=== PATIENT | male | born 1975 | race Caucasian/White ===

== ENCOUNTER 2023-12-16 06:53 | Day surgery (SDC) | payer OTHER, SELFPAY ==
--- NOTE | 2023-12-16 | PATH_ITS ---
[facility] Accession Number: [id number] No. of containers..02 Tissue . 01 Material submitted: . PART A: colon - ASCENDING POLYP PART B: colon - SIGMOID POLYP . 01 Diagnosis: Part A: ASCENDING POLYP: Scant superficial glandular mucosa with no dysplasia identified. . Part B: SIGMOID POLYP: Colonic mucosa with benign lymphoid aggregate. No neoplasm identified. . Specimen Comments: Additional step sections were examined. [facility] 12/22/20231121 Local . 01 Electronically signed: . Luis Antonio Hernandez MD, Pathologist NPI- [id number] . 01 Gross description: . Part A: ASCENDING POLYP: Received in formalin is 1 fragment(s) of [place], soft tissue measuring 0.1 x 0.1 x 0.1 cm submitted entirely in 1 cassette(s) . Part B: SIGMOID POLYP: Received in formalin is 1 fragment(s) of [place], soft tissue measuring 0.4 x 0.2 x 0.2 cm submitted entirely in 1 cassette(s) /JESSICA 12/22/2023 112 Local . 01 Pathologist provided ICD-10: K63.5, K63.89 . 01 CPT . 939789, [id number] Specimen Comment: A courtesy copy of this report has been sent to [phone] Performed at: [facility] [address] [place] [address], [place], [place] [id number] MD Luis Antonio Hernandez MD Phone: [phone]
[2023-12-16 07:07] VITALS: BP 113/83; PULSE 74; RESP 16; TEMP 36.1; O2SAT 100
--- NOTE | 2023-12-16 07:52 | PM.HP.1 ---
History of Present Illness History of Present Illness Date Patient Seen: 12/16/23 Time Patient Seen: 07:52 Chief complaint: Colonoscopy Narrative: 48-year-old man here for screening colonoscopy. Family history of colon cancer in brother. No previous colonoscopy. No abdominal concerns today. [facility] Medical History Vision disorder Bulimia (~1999) Migraines (~1998) ADHD (~2002) MRSA (methicillin resistant Staphylococcus aureus) (~2005) Hypothyroidism Surgical History Anesthesia History of eye surgery History of removal of testicle (~1992) Status post appendectomy Family History Brother Age: 49 Obese Brother Age: 42 Obese Father Age: 73 Diabetes mellitus Hypertension Grandfather Diabetes mellitus Heart disease Grandmother Heart disease Grandfather No problems noted. Grandmother No problems noted. Mother History of thyroid nodule History of knee surgery History of neck surgery Social History Smoking Status: Former smoker alcohol intake: current Meds Home Medications and Allergies Home Medications Medication Instructions Recorded Confirmed Type CA PANTOTHENATE/FOLIC ACID/VIT 1 tab PO QDAY ##0 11/30/12 02/09/22 History (MULTIVITAMIN) methylphenidate HCl 27 mg 27 mg PO DAILY #30 tabs 05/18/18 02/09/22 Rx tablet,extended release 24 hr (Concerta) hydrochlorothiazide 12.5 mg tablet 12.5 mg PO DAILY #30 tabs 08/14/18 12/16/23 Rx peg 3350-sod sulf,cttlr-qfv-lfy 1,000 ml PO DIRECTED #2,000 mL 11/10/23 Rx 178.7-7.3-0.5-1.12-0.9 gram oral soln (Suflave) Allergies Allergy/AdvReac Type Severity Reaction Status Date / Time clindamycin [CLINDAMYCIN] Allergy Mild RASH Verified 12/16/23 07:06 Penicillins [PENICILLINS] Allergy Mild Verified 12/16/23 07:06 Sulfa (Sulfonamide Allergy Mild Verified 12/16/23 07:06 Antibiotics) [SULFA (SULFONAMIDE ANTIBIOTICS)] trimethoprim [TRIMETHOPRIM] Allergy Mild Verified 12/16/23 07:06 Exam Vital Signs (past 8 hours): - 12/16/23 07:07 Temperature 96.9 F L Pulse Rate 74 Respiratory Rate 16 Blood Pressure 113/83 Pulse Oximetry 100 Oxygen Delivery Method Room Air Oxygen Delivery Method Room Air Narrative Exam Narrative: General adult man alert oriented no acute distress Chest nonlabored respiration Extremities warm well perfused Assessment & Plan Assessment & Plan narrative: The patient requires colorectal screening and colonoscopy is recommended. Technical details were discussed. Risks, benefits, alternatives explained. Risks including but not limited to myocardial infarction, aspiration, bleeding, pain, missed lesion, incomplete examination, need for further radiographic studies, colonic perforation, and need for major abdominal surgery were discussed. All questions were answered to their satisfaction, and they are in agreement with this plan.
--- NOTE | 2023-12-16 07:53 | P.OP.COLON_ITS ---
Operative Date/Time/Diagnoses Date of procedure: 12/16/23 Time of procedure: 08:18 Pre-op diagnosis: Family history colon cancer Post-op diagnosis: other Procedure & Clinicians Study performed: Colonoscopy and polypectomy Same procedure as scheduled: Yes Indications: Colorectal screening Family history of colon cancer in first-degree relative Surgeon: Medhat Dorado Procedure Notes Procedure in detail: The history and physical was performed/updated and the patient is ASA class is 2. The procedure was discussed in detail with the patient. Potential risks complications including infection, bleeding, missed diagnosis, perforation, need for surgery, and were explained. Their questions were answered and informed consent was obtained. Patient was brought to the procedure room and placed standard monitoring equipment. The patient's vital signs were monitored continuously throughout the entire procedure. Prior to starting time-out was performed. The patient was placed in the left lateral recumbent position. Procedural sedation was administered by anesthesia. Examination began with a thorough inspection of the perianal area there was no evidence of fissures, fistulae, external hemorrhoids or cutaneous malignancy. The colonoscopy scope was then placed into the anal canal and was advanced to the cecum, which was identified by the ileocecal valve, the appendiceal orifice and the confluence of the taenia. The scope was then slowly withdrawn examining colon thoroughly in all directions, irrigating it of any residual stool. The scope was retroflexed within the rectum The patient tolerated the procedure well. They will be discharged once criteria are met. The prep was of good/excellent quality. The withdrawl time was 7 minutes. FINDINGS * Ascending colon 3 mm polyp removed with biopsy forceps * Sigmoid colon 3 mm polyp removed with biopsy forceps. Mild diverticulosis * Internal hemorrhoids Specimen(s): other (Ascending sigmoid colonic polyps) Impression: Colonic polyps x2 Post-procedure Plan for aftercare: Follow-up is dependent on pathology findings Disposition: same day surgery
[2023-12-16 08:15] VITALS: BP 95/65; PULSE 78; RESP 15; TEMP 36.1; O2SAT 97
[2023-12-16 08:20] VITALS: BP 104/61; PULSE 93; RESP 20; O2SAT 98
[2023-12-16 08:25] VITALS: BP 99/71; PULSE 77; RESP 16; TEMP 36.1; O2SAT 99
[2023-12-16 08:31] VITALS: BP 104/73; PULSE 65; RESP 14; TEMP 36.3; O2SAT 98
== END 2023-12-16 08:46 | disposition home or self-care (01) ==
PROVIDERS: PCP Internal Medicine; Referring Provider Surgery; Visit Provider Surgery
PROC: 0DJD8ZZ Inspection of Lower Intestinal Tract, Via Natural or Artificial Opening Endoscopic (ICD-10-PCS; CPT 45378; principal; 2023-12-16 07:45)
DX: Z12.11 Encounter for screening for malignant neoplasm of colon (principal); Z80.0 Family history of malignant neoplasm of digestive organs; K64.8 Other hemorrhoids; K57.30 Diverticulosis of large intestine without perforation or abscess without bleeding; K63.5 Polyp of colon
CPT/HCPCS: 45380; J2704